=== PATIENT | female | born 1945 | race Caucasian/White ===

== ENCOUNTER → 2017-08-16 | Outpatient (CLI) | payer MEDICARE, MEDICAID ==
[~2017-08-16] MED LIST: ASPIRIN325 MG PO; CETIRIZINE HYDR10 MG OR; CLONIDINE 0.1M0.1 MG TD; CLONIDINE0.1 MG PO; FLEXERIL10 MG PO; FUROSEMIDE 20MG20 MG FT; IBU-8800 MG PO; LEVOTHYROXINE0.05 MG NG; LORTAB 10/3251 TAB PO; LORTAB 5/500 501 TAB PO; MEDROL 4MG. DOSE4 MG PO; NAPROSYN 500MG500 MG PO; OXYCODONE 5MG TA5 MG PO; PREDNISONE20 MG PO; RANITIDINE HCL150 MG PO; TOPIRAMATE25 M1 PO
--- NOTE | 2017-08-21 09:27 | RADIOLOGY REPORT PS360 ---
MRI-LOW EXT ANY JOINT W/O-LT MRI left ankle HISTORY: PAIN IN LEFT ANKLE AND JOINTS OF LEFT FOOTpain left ankle and left foot. Swelling symptoms 3 months no trauma reported. Pain with bearing weight on foot. PATIENT AGE: 72 years ORDERING PHYSICIAN: JOSE OGDEN MD COMPARISON: Plain films left ankle 04/16/2017 TECHNIQUE: Multiplanar multisequence imaging performed without contrast on 1.5 the MR. FINDINGS: . ............. Abnormal bone signal seen throughout the tarsal navicular suspect more likely reflecting stress reaction or possible bone contusion.. No destructive changes to support osteomyelitis however it may be worth checking CBC & ESR to correlate. No history of diabetes to support early neuropathic changes. With this diffuse activity throughout the navicular I tend doubt merely reactive arthritic changes but this is a possibility. No displaced fracture is evident but On close inspection question a subtle low signal serpiginous line passing vertically & longitudinally through more medial portion of the tarsal navicular. (Coronal slice 13Axial slice 15) which could reflect a microfracture vs merely a vascular channel. 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 Slight contour slight cortical irregularity seen on (axial image 14 sagittal slice 9)The dorsal medial corner of the distal navicular there is a margin or surface.; but suspect this may merely reflect variations of cortical contour of the bone along its dorsal aspect not related to the articular surface. There is also borderline to signal very subtle increased signal I believe at the lateral cuneiform bone suggesting likely similar process as to what was encountered at navicular. Borderline narrowing at the articulation between cuboid and this lateral cuneiform. Finally noted a very subtle subcortical rim of increased signal at distal talus just beneath the cortical surface as seen on sagittal image 13/14 & axial slice 13 & 14. Subtle narrowing & mild arthritic changes at this talar navicular joint... Relatively mild arthritic changes may account for this subarticular, subcortical signal at the distal talus but does not seem to fully account for the diffuse activity at the navicular. This IMPRESSION 1. Definite Diffuse abnormal increased signal reflecting bone edema throughout navicular bone at midfoot. .. Suspect Possible stress reaction/bone contusion. Other considerations discussed in text Also on close inspection question barely appreciable subtle serpiginous line transversing the medial aspect of navicular could reflect microfracture. (Does This patient have significant walking or repetitive repetitive stress history prior to this pain.) 2. There is also suggestion of some very subtle increased activity at the lateral cuneiform with similar differential considerations. Again tend to favor stress reaction. 3. Subtle Scant thin rim of increased signal just beneath the cortex at subarticular region of distal most talus, likely reflecting some early arthritic changes, & most evident at lateral talar navicular joint-. Possible scant arthritic changes at the the talar-lateral cuneiform articulation 4. Soft tissue edema along the plantar aspect of the tarsals at midfoot- with most pronounced soft tissue edema seen beneath plantar aspect of the navicular.
== END ==
LOC: RAD 13:29
DX: M25.572 Pain in left ankle and joints of left foot (principal)

== ENCOUNTER → 2017-09-12 | Outpatient (CLI) | payer MEDICARE, MEDICAID ==
--- NOTE | 2017-09-12 10:42 | RADIOLOGY REPORT PS360 ---
CHEST(2 VIEWS-NOT PORTABLE) HISTORY: Asthma, ASTHMA, PRE-OP ORDERING PHYSICIAN: JOSE OGDEN MD PATIENT AGE: 72 years COMPARISON: 06/07/2016 FINDINGS: The cardiomediastinal silhouette and pulmonary vascularity are within normal limits. The lungs are clear without infiltrates, suspicious nodules, or pleural effusions. No acute bony abnormalities. IMPRESSION: No change no acute finding
== END ==
LOC: LAB 09:20
DX: M84.375A Stress fracture, left foot, initial encounter for fracture (principal); Z01.812 Encounter for preprocedural laboratory examination

== ENCOUNTER → 2017-10-09 | Outpatient (CLI) | payer MEDICARE, MEDICAID ==
--- NOTE | 2017-10-18 10:16 | RADIOLOGY REPORT PS360 ---
FOOT-LT-3 VIEWS Ordering Physician: JOSE OGDEN MD Patient Age: 72 years: Female HISTORY: POST OP FUsurgery 3 weeks ago TECHNIQUE: 3 views left foot COMPARISON :Fluoroscopic images September 19, 2017 MRI left foot 08/16/2017 FINDINGS Previous MR showed abnormality normal signal throughout the tarsal navicular reflecting likely a stress fracture or reaction. Twisted patient is undergone sub chondroplasty procedure. with injection radiopaque material primarily into the navicular.. Some of this material has disseminated from the navicular bone and seen overlying along its medial aspect. Also note more linear radiopaque material seen extending lateral to the navicular projected over region of the calcaneal, cuboid joint region There is also radiopaque material extending towards distal to the navicular towards region of immediate cuneiform on the frontal projection & questionably towards the more lateral cuneiform on the oblique view. Requires correlation with surgical procedure. Ongoing follow-up suggested. Metatarsals appear osteopenic but intact. Joint spaces MTP joint is well-maintained. 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 It Although the radiopaque material is mainly within the navicular there is some extravasation medial and lateral to the navicular. Also less evident radiopaque material suggested extending distal from the navicular towards the intermediate & possibly lateral cuneiform. Ongoing follow-up suggested.
== END ==
LOC: RAD 12:33
DX: Z48.89 Encounter for other specified surgical aftercare (principal)